=== PATIENT | female | born 1995 | race Caucasian/White ===

== ENCOUNTER → 2023-09-26 | Outpatient (CLI) | payer SELFPAY ==
--- NOTE | 2023-09-26 08:55 | US_ITS ---
INDICATION: LUQ PAIN AND SWELLING COMPARISON: None. FINDINGS: 39 targeted grayscale ultrasound images of the left upper quadrant. SPLEEN: Unremarkable. KIDNEY: Left kidney is without shadowing nephrolith or hydronephrosis. Left upper renal pole echogenic 0.7 cm focus. No significant free fluid. US/Abdomen Limited IMPRESSION: Left upper renal pole echogenic 0.7 cm focus, likely nephrolith in place. Otherwise, unremarkable spleen and left kidney. Electronically Signed: Abraham Vargas MD at 7:11 EDT ,
== END | disposition home or self-care (01) ==
PROVIDERS: PCP Family Medicine
DX: R10.12 Left upper quadrant pain (principal); R19.02 Left upper quadrant abdominal swelling, mass and lump
CPT/HCPCS: 76705

== ENCOUNTER 2023-11-01 18:15 | Emergency (ER) | payer OTHER, SELFPAY ==
[2023-11-01 18:16] VITALS: BP 162/106; PULSE 100; RESP 20; TEMP 37.4; O2SAT 97; BMI 47.0
[2023-11-01] MEDS: Metoclopramide 10 MG/2 ML Vial 5 MG IV (21:06)
[2023-11-01] MEDS: DiphenhydrAMINE 50 MG/ML Syringe 25 MG IV (21:07)
[2023-11-01] MEDS: Acetaminophen 500 MG Tablet 1000 MG PO (21:08)
[2023-11-01] MEDS: 0.9% Normal Saline (1000mL) 1,000 ML 999 ML IV (21:09)
[2023-11-01 21:10] VITALS: BP 136/83; PULSE 70; RESP 18; O2SAT 97
--- NOTE | 2023-11-01 21:32 | CT_ITS ---
STUDY: CTA NECK WITH CONTRAST REASON FOR EXAM: Female, 28 years old. Chiropractic treatment worsening pain RADIATION DOSAGE (If Supplied By Facility): CTDIvol = ( 23.00 ) mGy, DLP = ( 602.45 ) mGycm TECHNIQUE: CT angiography with multi-detector data acquisition was performed from the aortic arch to the skull base following intravenous administration of IV 100mL [id number]-370. MIP images were reconstructed from the axial data set. Post-processing of the angiographic images was performed, with multiplanar reformation and 3D reconstruction. Individualized dose optimization techniques were used for this CT. COMPARISON: None. FINDINGS: AORTIC ARCH: Normal visualized aortic arch. Normal origins of the brachiocephalic, left common carotid, and left subclavian arteries. RIGHT CAROTID ARTERIES: Normal right common carotid artery (CCA). Normal right common carotid bulb. Normal origin of the right internal carotid (ICA) artery without a hemodynamically significant stenosis. Normal visualized cervical portion of the right internal carotid artery. Normal origin of the right external carotid artery (ECA). LEFT CAROTID ARTERIES: Normal left common carotid artery (CCA). Normal left common carotid bulb. Normal origin of the left internal carotid (ICA) artery without a hemodynamically significant stenosis. Normal visualized cervical portion of the left internal carotid artery. Normal origin of the left external carotid artery (ECA). VERTEBRAL ARTERIES: Normal bilateral vertebral arteries. CT/CTA Neck W/WO Contrast IMPRESSION: Normal bilateral cervical carotid and vertebral arteries. Electronically Signed: Jose Hernandez MD at 23:02 EDT ,
[2023-11-01] MEDS: Orphenadrine 60 MG/2 ML Ampul 30 MG IV (21:44)
[2023-11-01 21:51] LABS: Bacteria 0 SEEN /hpf (None Seen); Mucous, Urine 0 SEEN /hpf (<or=2+); Red Blood Cells-Urine 0 SEEN /hpf (0-5)
[2023-11-01 21:55] LABS: Color, Urine Yellow (Yellow); Glucose, Dipstick Normal (Normal); Ketone-Dipstick Negative (Negative); Leukocyte Esterase-Dipstick 25 /ul (Negative); Nitrite-Dipstick Negative (Negative); Occult Blood-Urine 10 /ul (Negative); Protein-Dipstick Negative (Negative); Urine Bilirubin Dipstick Negative (Negative); Urine Clarity Clear (Clear); Urine Urobilinogen Normal (Normal); Urine pH 6.5 (5.0 - 8.0)
[2023-11-01 22:03] LABS: Internal QC Validated? YES +Cl - CLEAR BKGD; Pregnancy, Urine Negative Negative; Record Kit Lot#,Urine Preg 772476
[2023-11-01 22:05] LABS: Anion Gap 6 (5-15); BUN 10 mg/dL (7-18); BUN/Creat Ratio 13.7 RATIO (10-20); Calcium,Total 9.3 mg/dL (8.5-10.1); Chloride 110 mmol/L (98-107); Creatinine, Serum 0.73 mg/dL (0.55-1.02); EST Glomerular Filtration Rate 101 mL/min (>60); Est Glom Filt Rate - Afr Amer 122 mL/min (>60); Estimated Creatinine Clearance 160.22 ml/min; Glucose 103 mg/dL (74-106); Potassium 3.9 mmol/L (3.5-5.1); Sodium Level 143 mmol/L (136-145)
[2023-11-01 22:07] LABS: White Blood Cells 0-5 SEEN /hpf (0-5)
[2023-11-01 22:08] LABS: Squamous Epithelial Cells - UA 5-10 SEEN /hpf (5-10)
[2023-11-01 23:00] VITALS: BP 114/64; PULSE 68; TEMP 37.2; O2SAT 98
--- NOTE | 2023-11-01 23:26 | EDS_ITS ---
HPI History of Present Illness Chief Complaint: Headache Narrative Narrative: Patient is a 28-year-old female with no known significant past medical history who presented to the emergency department the chief complaint of right-sided neck pain. Patient states that this morning she woke up and rolled over in bed and felt a pop on the right side of her neck causing her pain. She states that her pain is radiating up into her head causing her to have a headache as well. According to the patient and family members they went to their chiropractor today and noted that he took an x-ray and noted that the right side of her neck muscle was tight therefore that some treatment which included cracking of her neck. They deny any recent sick contacts denies any fevers. Patient states that she knows her pain is exacerbated if she attempts to turn her head to the right however she states that she can look to the left without any problem. PFSH PFSH Medical History no medical history Home Medications ?Medication ?Instructions ?Recorded ?Last Taken ?Type lorazepam 1 mg tablet 1 mg PO TID PRN PRN Anxiety 05/25/16 Unknown History ondansetron 8 mg disintegrating 8 mg PO Q12H PRN PRN Nausea ##10 05/25/16 Unknown Rx tablet (Zofran ODT) ascorbic acid 1,000 1,000 mg PO DAILY 06/15/16 Unknown History md-ejhhcficelvs-bofrrwve powder effervescent pack (Emergen-C) docusate sodium 100 mg capsule 100 mg PO DAILY ##10 06/16/16 Unknown Rx (DOK) hydrocodone-acetaminophen 5-325mg 1 - 2 ea PO Q4H PRN PRN Pain #30 06/16/16 Unknown Rx 5mg-325mg ([place]) tabs cyclobenzaprine 5 mg tablet 10 mg (2 x 5 mg) PO TID PRN muscle 11/01/23 Unknown Rx spasm #14 tabs Allergy/AdvReac Type Severity Reaction Status Date / Time No Known Allergies Allergy Verified 11/01/23 18:15 Social History Smoking Status: Never smoker ROS ROS ED ROS Narrative Constitutional: Complains of headache as noted above denies any fevers, chills, lightheadedness, dizziness Eyes: Complains of some double vision after her chiropractic treatment denies any blurry vision. States that her vision is normal now Cardiovascular: Denies chest pain or palpitations Respiratory: Denies coughing wheezing shortness of breath Abdomen: Denies abdominal pain nausea vomit diarrhea : Denies any urinary symptoms Neurological: Denies numbness weakness and tingling Musculoskeletal: Denies back pain Skin: Denies rashes or lesions EXAM Physical Exam Narrative Exam Narrative: General: Patient was lying in bed did appear to be uncomfortable secondary to her neck pain Head: Atraumatic, normocephalic Eyes: PERRL bilaterally, EOMI bilateral, no conjunctival injection noted Neck: Soft, supple, trachea midline, no midline tenderness palpation of the cervical spine, no concern for meningeal signs of meningitis, patient does have limited range of motion when she attempts to look to the right however she is able to look left and look down without any difficulty Cardiovascular: Regular rate and rhythm no murmurs gallops rubs noted Respiratory: Clear to auscultation bilaterally no rales rhonchi wheeze noted Abdomen: Soft, no tenderness palpation Musculoskeletal: No tenderness palpation thoracolumbar spine Extremities: +5/5 strength noted in the bilateral upper and lower extremities, no pedal edema on exam Neurological: Patient was following commands knew that she was at [facility] there is 2023 Skin: Warm, dry, intact no rashes or lesions noted Const Vital Signs: 11/01/23 18:16 11/01/23 21:10 Temperature 99.4 F H Temperature Source Oral Pulse Rate 100 70 Respiratory Rate 20 H 18 Blood Pressure 162/106 H 136/83 H Blood Pressure Mean 124 100 Pulse Ox 97 97 Oxygen Delivery Method Room Air Room Air MDM MDM MDM Narrative Medical decision making narrative: Patient is a 28-year-old female who presented to the emergency department with a chief complaint of right-sided neck pain after waking up this morning rolling over and feeling a pop. Patient will have a workup performed here on the differential diagnose includes but limited to carotid artery dissection after chiropractic treatment, upper respiratory effect second of ideology, musculoskeletal strain. Once workup is obtained reviewed she will be reevaluated. Patient's BMP reviewed showed normal sodium 143, potassium normal at 3.9, creatinine was normal at 0.73. Patient's urinalysis did not reveal any evidence of infection test was negative. Patient's CT angiography of the neck reviewed and showed no acute abnormalities of the carotid or vertebral arteries. Did discuss the results with the patient and she states that her pain is improved after the migraine cocktail as well as the muscle relaxer. Her parents did inquire possibility of meningitis however once again the patient has not had any sick contacts and she has tenderness palpation over the right trapezius region there is no concern for meningeal signs on exam patient's heart rate is normal and it was noted to be afebrile here. I did discussed with them if they are concerned about this and that the only way to rule this out is by performing a lumbar puncture and they state that they do not feel that this is necessary at this point time. They state that they will return with worsening symptoms instead. I did advise them to follow-up with her primary care physician outpatient setting. I advised him to return if she is having worsening neck pain fevers or any other concerns. I sent a prescription for cyclobenzaprine to her pharmacy encouraged her to stretch and use ibuprofen Tylenol [id number]-ijw-gykuq for pain control. They are agreeable with this plan they would like to go home at this point time all question concerns answered she was discharged home in stable condition. Lab Data Labs: Laboratory Results - last 24 hr 11/01/23 11/01/23 21:40 21:45 Sodium 143 Potassium 3.9 Chloride 110 H Carbon Dioxide 27.0 Anion Gap 6 BUN 10 Creatinine 0.73 Estim Creat Clear Calc 160.22 Est GFR (MDRD) Af Amer 122 Est GFR (MDRD) Non-Af 101 BUN/Creatinine Ratio 13.7 Glucose 103 Calcium 9.3 Urine Color Yellow Urine Clarity Clear Urine pH 6.5 Ur Specific [place] 1.010 Urine Protein Negative Urine Glucose (UA) Normal Urine Ketones Negative Urine Occult Blood 10 H Urine Nitrite Negative Urine Bilirubin Negative Urine Urobilinogen Normal Ur Leukocyte Esterase 25 H Urine RBC 0 SEEN Urine WBC 0-5 SEEN Ur Squamous Epith Cells 5-10 SEEN Urine Bacteria 0 SEEN Urine Mucus 0 SEEN Urine Test Negative Radiography Diagnostic Testing: Clinical Impression(s) from Imaging Studies Neck CTA 11/01/23 21:32 IMPRESSION: Normal bilateral cervical carotid and vertebral arteries. Electronically Signed: Jose Hernandez MD at 23:02 EDT , Discharge Plan Triage Chief Complaint: Headache ED Provider: Puneet Wooten Dx/Rx/DC Orders Clinical Impression: Neck pain, Musculoskeletal strain Prescriptions: New cyclobenzaprine 5 mg tablet 10 mg PO TID PRN (Reason: muscle spasm) Qty: 14 0RF No Action lorazepam 1 MG tablet 1 mg PO TID PRN PRN (Reason: Anxiety) ondansetron [Zofran ODT] 8 MG tablet,disintegrating 8 mg PO Q12H PRN PRN (Reason: Nausea) Qty: 10 0RF ascorbic yydv-kxkbzedj-juw [Emergen-C] 1,000 MG powder effervescent in packet 1,000 mg PO DAILY hydrocodone-acetaminophen [[place]] 1 EACH tablet 1 - 2 ea PO Q4H PRN PRN (Reason: Pain) Qty: 30 0RF docusate sodium [DOK] 100 MG capsule 100 mg PO DAILY Qty: 10 0RF Rx Instructions: take while taking [place] Primary Care Provider: Fantasma Francis Referrals: Fantasma Francis DO [Primary Care Provider] - Activity Restrictions/Additional Instructions: Follow with your primary care physician outpatient setting. Continue to stretch, rotate Tylenol and ibuprofen [id number] for pain control. Use muscle relaxer as needed for pain control. Return with worsening neck pain, fevers or any other concerns. Print Language: Portuguese Disposition Disposition: Home, Self Care
[2023-11-01 23:58] VITALS: BP 122/99; PULSE 74; RESP 18; TEMP 36.4; O2SAT 99
== END 2023-11-01 23:59 | disposition home or self-care (01) ==
PROVIDERS: Emergency Provider Emergency Medicine; PCP Family Medicine; Visit Provider Emergency Medicine
DX: R51.9 Headache, unspecified (principal); S16.1XXA Strain of muscle, fascia and tendon at neck level, initial encounter; X58.XXXA Exposure to other specified factors, initial encounter
CPT/HCPCS: 70498; 80048; 81001; 81025; 96361; 96374; 96375; 99282; J7030; Q9967; A4216